=== PATIENT | female | born 1995 | race Caucasian/White ===

== ENCOUNTER 2017-10-12 09:00 | Emergency (ER) | payer SELFPAY ==
[~2017-10-12] VITALS: Ht 165.1 cm; Wt 90.7 kg
[2017-10-12 09:10] VITALS: BP 134/83
--- NOTE | 2017-10-12 09:16 | NUR ---
22/F presents to the ED with complaints of lower back pain since this morning while carrying her son. She denies any fall, injury or trauma. Pt states she was holding her son when the pain came on suddenly. Ambulates with steady gait. 7/10, non radiating, constant pain. AOX4, clear speech. Denies medical hx. Pt appears calm and relaxed, all needs addressed at this time. Awaiting ERMD.
--- NOTE | 2017-10-12 09:34 | NUR ---
Dr. Mcdaniels evaluating pt.
[2017-10-12] MEDS ORDERED: IBUPROFEN 400 MG TAB PO ONE (09:45)
[2017-10-12 09:51] VITALS: BP 134/83
--- NOTE | 2017-10-12 09:51 | NUR ---
Patient discharged with v/s stable. Written and verbal after care instructions given and explained. Patient verbalized understanding. Ambulatory with steady gait. All questions addressed prior to discharge. Advised to follow up with PMD.
== END 2017-10-12 09:51 | disposition home or self-care (01) ==
LOC: MED 09:00
DX: S29.012A Strain of muscle and tendon of back wall of thorax, initial encounter (principal); R03.0 Elevated blood-pressure reading, without diagnosis of hypertension; X58.XXXA Exposure to other specified factors, initial encounter; Y93.89 Activity, other specified; Y92.89 Other specified places as the place of occurrence of the external cause; Y99.8 Other external cause status
CPT/HCPCS: 99282